=== PATIENT | female | born 1970 | race Caucasian/White ===

== ENCOUNTER 2021-04-11 04:41 | Day surgery (SDC) | payer BC, OTHER ==
[2021-04-09 09:49] VITALS: BMI 32.8
[2021-04-11] MEDS ORDERED: LIDOCAINE HCL/PF 2% SDV 5ML VIAL ONE (07:19)
[2021-04-11] MEDS ORDERED: DEXAMETHASONE SOD PHOSPHATE 4 MG/1 ML VIAL ONE (07:19)
[2021-04-11] MEDS ORDERED: PROPOFOL 20 ML ONE (07:20)
[2021-04-11] MEDS ORDERED: MIDAZOLAM HCL 2 MG/2 ML SINGLE DOSE VIAL ONE (07:20)
[2021-04-11] MEDS ORDERED: ACETAMINOPHEN 1000 MG/100 ML VIAL (NON FORMULARY) IVPB ONE (08:03)
[2021-04-11] MEDS ORDERED: HYDROCORTISONE SOD SUCCINATE 100 MG/2 ML VIAL ONE (08:06)
[2021-04-11] MEDS ORDERED: IBUPROFEN 800 MG/8 ML IJ IVPB SCH (08:15)
[2021-04-11] MEDS ORDERED: DEXTROSE 5%-0.45% SALINE 1,000 ML IV SCH (08:15)
[2021-04-11] MEDS ORDERED: ceFAZolin 2 GRAM PREMIX BAG IVPB ONE (08:16)
[2021-04-11] MEDS ORDERED: ceFAZolin SODIUM 1 GM VIAL ONE (08:22)
[2021-04-11] MEDS ORDERED: ACETAMINOPHEN INJECTION 100 ML IVPB ONE (09:26)
[2021-04-11 11:41] VITALS: BP 130/70; PULSE 72; TEMP 97.8
[2021-04-11] MEDS ORDERED: ONDANSETRON 4 MG/2 ML VIAL IVPUSH PRN (13:11)
[2021-04-11] MEDS ORDERED: oxyCODONE HCL 5 MG TABLET PO PRN ×2 (13:11)
[2021-04-11] MEDS ORDERED: LACTATED RINGERS SOLUTION 1,000 ML IV SCH (13:15)
== END 2021-04-11 11:30 | disposition home or self-care (01) ==
LOC: JASU-SURG 04:41
PROVIDERS: ATTEND Urology
PROC: 0TSD0ZZ Reposition Urethra, Open Approach (ICD-10-PCS; principal; 2021-04-11 07:30)
DX: N39.3 Stress incontinence (female) (male) (principal); N36.41 Hypermobility of urethra
CPT/HCPCS: 57288; C1771; 81025; 94760; J0131

== ENCOUNTER 2021-09-24 04:00 | Day surgery (SDC) | payer BC, OTHER ==
[2021-09-19 14:07] VITALS: BMI 32.3
[2021-09-24] MEDS ORDERED: PNEUMOC 13-VAL CONJ-DIP CRM/PF 0.5 ML DISP.SYRIN IM ONE (06:32)
[2021-09-24] MEDS ORDERED: ceFAZolin SODIUM 1 GM VIAL ONE (06:44)
[2021-09-24] MEDS ORDERED: ROCURONIUM BROMIDE 50 MG/5 ML SYRINGE ONE ×2 (07:29→09:14)
[2021-09-24] MEDS ORDERED: LIDOCAINE HCL/PF 2% SDV 5ML VIAL ONE (07:29)
[2021-09-24] MEDS ORDERED: DEXAMETHASONE SOD PHOSPHATE 4 MG/1 ML VIAL ONE (07:29)
[2021-09-24] MEDS ORDERED: PROPOFOL 20 ML ONE ×2 (07:29→08:20)
[2021-09-24] MEDS ORDERED: BUPIVACAINE LIPOSOME/PF (EXPAREL) 266 MG/20 ML VIAL ONE ×2 (07:47→07:54)
[2021-09-24] MEDS ORDERED: MIDAZOLAM HCL 2 MG/2 ML SINGLE DOSE VIAL ONE ×2 (07:48)
[2021-09-24] MEDS ORDERED: BUPIVACAINE HCL/PF 0.5% (5MG/ML) 10 ML VIAL ONE ×2 (07:48→07:54)
[2021-09-24] MEDS ORDERED: ceFAZolin SODIUM 1 GM VIAL IVPB ONE (08:23)
[2021-09-24] MEDS ORDERED: BUPIVACAINE 0.25% /EPI 1:200,000 10 ML VIAL NR ONE (08:45)
[2021-09-24] MEDS ORDERED: BUPIVACAINE HCL/EPINEPHRINE/PF 30 ML VIAL IJ ONE (08:53)
[2021-09-24] MEDS ORDERED: CEFAZOLIN 2 GM in DEXTROSE 5%-WATER - 100 ML IVPB ONE (09:00)
[2021-09-24] MEDS ORDERED: ONDANSETRON 4 MG/2 ML VIAL IVPUSH PRN (10:01)
[2021-09-24] MEDS ORDERED: HYDROmorphone *PCA* 10MG/50ML DISP.SYRIN PCA SCH (10:15)
[2021-09-24] MEDS ORDERED: LACTATED RINGERS SOLUTION 1,000 ML IV SCH (10:15)
[2021-09-24] MEDS ORDERED: NEOSTIGMINE METHYLSULFATE 0.5 MG/ML - 10 ML MDV ONE (10:58)
[2021-09-24] MEDS ORDERED: GLYCOPYRROLATE 0.2 MG/1 ML VIAL ONE (10:59)
[2021-09-24] MEDS ORDERED: HYDROmorphone *PCA* 10MG/50ML DISP.SYRIN ONE (11:19)
[2021-09-24] MEDS ORDERED: oxyCODONE HCL 5 MG TABLET PO ONE ×2 (14:38→14:45)
[2021-09-24] MEDS ORDERED: CEFAZOLIN 2 GM in SODIUM CHLORIDE 100 ML IVPB SCH (15:00)
[2021-09-24 15:57] VITALS: BP 124/84; PULSE 84; TEMP 97.9
== END 2021-09-24 17:15 | disposition home or self-care (01) ==
LOC: JASUSAT 04:00
PROVIDERS: ATTEND Specialist
PROC: 0UQF8ZZ Repair Cul-de-sac, Via Natural or Artificial Opening Endoscopic (ICD-10-PCS; 2021-09-24)
PROC: 0USG8ZZ Reposition Vagina, Via Natural or Artificial Opening Endoscopic (ICD-10-PCS; 2021-09-24)
PROC: 0U9 Female Reproductive System, Drainage (ICD-10-PCS; 2021-09-24)
PROC: 0UT9FZZ Resection of Uterus, Via Natural or Artificial Opening With Percutaneous Endoscopic Assistance (ICD-10-PCS; principal; 2021-09-24 08:00)
PROC: 0UT7FZZ Resection of Bilateral Fallopian Tubes, Via Natural or Artificial Opening With Percutaneous Endoscopic Assistance (ICD-10-PCS; 2021-09-24 08:00)
DX: D25.1 Intramural leiomyoma of uterus (principal); N83.202 Unspecified ovarian cyst, left side; N83.201 Unspecified ovarian cyst, right side; N99.3 Prolapse of vaginal vault after hysterectomy; N73.6 Female pelvic peritoneal adhesions (postinfective)
CPT/HCPCS: 81025; 88302-TC; 88304-TC; 88307-TC; 94760